=== PATIENT | male | born 1985 | race African-American/Black ===

== ENCOUNTER 2018-08-28 08:35 | Emergency (ER) | payer OTHER ==
[~2018-08-28] VITALS: Ht 177.8 cm; Wt 88.5 kg
[~2018-08-28 08:35] MED LIST: MOTRIN800 MG PO
== END 2018-08-28 09:09 | disposition home or self-care (01) ==
LOC: ED 08:35
DX: S61.217A Laceration without foreign body of left little finger without damage to nail, initial encounter (principal); W45.8XXA Other foreign body or object entering through skin, initial encounter; Y93.89 Activity, other specified; Y92.69 Other specified industrial and construction area as the place of occurrence of the external cause; Y99.9 Unspecified external cause status

== ENCOUNTER 2018-09-03 18:24 | Emergency (ER) | payer OTHER ==
[~2018-09-03] VITALS: Ht 177.8 cm; Wt 88.5 kg
[2018-09-03 19:45] LABS: HEMATOCRIT 43.9 % (42.0-52.0); HEMOGLOBIN 14.5 g/dl (14.0-18.0); MEAN CELL VOLUME 97.1 fl (80.0-94.0); MEAN CORPUSCULAR HGB 32.1 pg (27.0-31.0); PLATELET COUNT AUTOMATED 209 10*3/uL (130-400); RED BLOOD COUNT 4.52 10*6/uL (4.50-5.90); RED CELL DISTRI WIDTH 12.4 % (0-14.5); WHITE BLOOD COUNT 7.6 10*3/uL (4.8-10.8)
[2018-09-03 20:01] LABS: ALBUMIN 4.3 gm/dl (3.1-4.5); ALKALINE PHOSPHATASE 64 U/L (45-117); BUN 11 mg/dl (7-24); CHLORIDE 107 mmol/L (98-107); CREATININE 1.15 mg/dL (0.70-1.30); POTASSIUM 4.1 mmol/L (3.5-5.1); SGOT/AST 29 IU/L (3-35); SGPT/ALT 37 U/L (12-78); SODIUM 140 mmol/L (136-145); TOTAL PROTEIN 7.7 gm/dL (6.4-8.2)
[2018-09-03 20:12] LABS: TOTAL CELLS COUNTED 100 #CELLS
[2018-09-03 20:13] LABS: BURR CELLS FEW; PLATELET SUFFICIENCY NORMAL (NORMAL)
== END 2018-09-03 20:33 | disposition home or self-care (01) ==
LOC: ED 18:24
PROVIDERS: Nurse Practitioner Family
DX: R59.0 Localized enlarged lymph nodes (principal); R19.00 Intra-abdominal and pelvic swelling, mass and lump, unspecified site